=== PATIENT | male | born 1945 | race Caucasian/White ===

== ENCOUNTER 2021-02-20 07:35 | Outpatient (CLI) | payer BC | END 2021-02-20 07:36 | disposition home or self-care (01) | LOC: CSHCT 07:35 | PROVIDERS: ATTEND Internal Medicine | DX: K86.81 Exocrine pancreatic insufficiency (principal) | CPT/HCPCS: 74170; 82565 ==

== ENCOUNTER 2025-02-24 14:27 | Outpatient (CLI) | payer MEDICARE | END 2025-02-24 14:28 | disposition home or self-care (01) | LOC: CSHULT 14:27 | PROVIDERS: ATTEND Nurse Practitioner Family | DX: N40.1 Benign prostatic hyperplasia with lower urinary tract symptoms (principal); N32.89 Other specified disorders of bladder | CPT/HCPCS: 76770 ==